=== PATIENT | male | born 1990 | race Two or more races ===

== ENCOUNTER 2018-08-20 11:49 | Emergency (ER) | payer BC ==
[~2018-08-20] VITALS: Ht 188 cm; Wt 70.3 kg
[2018-08-20 11:53] VITALS: BP 148/77
--- NOTE | 2018-08-20 12:00 | NUR ---
bilateral eye redness and pain x 3 days
== END 2018-08-20 12:41 | disposition home or self-care (01) ==
LOC: ER 11:51 → EDBD 11:51 → ER 12:41
DX: H10.33 Unspecified acute conjunctivitis, bilateral (principal)